=== PATIENT | female | born 1970 | race African-American/Black ===

== ENCOUNTER 2025-02-12 07:48 | Inpatient (IN) | payer MEDICAID ==
[~2025-02-12] VITALS: Ht 162.6 cm; Wt 84.8 kg
[2025-02-12] VITALS (57 sets, daily range): BP systolic 73–182; BP diastolic 36–154; PULSE 110–141; RESP 18–38; TEMP 35.5–37.7; O2SAT 100
[2025-02-12] MEDS: LORAZEPAM 2MG/ML UD SYRINGE ONE (07:57)
[2025-02-12] MEDS: SODIUM CHLORIDE 0.9% (SEPSIS BOLUS) IV ONE (08:06)
[2025-02-12] MEDS: PIPERACILLIN/TAZO 3.375G/50ML 50 ML IV ONE (08:07)
[2025-02-12] MEDS ORDERED: LORAZEPAM 2MG/ML UD SYRINGE IV SCH (08:15)
[2025-02-12] MEDS: PROPOFOL 10MG/ML 100ML 100 ML IV PRN (08:30)
[2025-02-12 08:43] LABS: BASOPHILS % 0.1 % (0.0-2.0); EOSINOPHILS % 0.0 % (0.0-5.0); HEMATOCRIT. 40.3 % (36.0-48.0); HEMOGLOBIN. 11.7 g/dL (12.0-16.0); LYMPHOCYTES % 10.3 % (20.0-50.0); MEAN PLATELET VOLUME 7.8 fl (7.4-10.4); MONOCYTES % 8.1 % (2.0-8.0); NEUTROPHILS % 81.5 % (40.0-76.0); PLATELET 225 x1000/uL (130-400); RED BLOOD CELL COUNT 3.95 mill/uL (4.2-5.4); RED CELL DISTRIBUTION WIDTH 19.2 % (11.6-14.6)
[2025-02-12 09:00] LABS: CREATININE 2.7 mg/dL (0.6-1.0)
[2025-02-12 09:01] LABS: ETHANOL BLOOD < 10 mg/dL (<10); TROPONIN I HIGH SENSITIVITY 10 ng/L (3.0-34); UREA NITROGEN BLOOD 15 mg/dL (9-23)
[2025-02-12 09:02] LABS: ASPARTATE AMINOTRANSFERASE 47 IU/L (<34)
[2025-02-12 09:03] LABS: BILIRUBIN DIRECT 0.6 mg/dL (<=3.0); BILIRUBIN TOTAL 1.3 mg/dL (0.1-1.0); PROTEIN TOTAL 6.4 g/dL (6.0-8.3)
[2025-02-12 10:00] LABS: BG BASE EXCESS -21.3 mmol/L (-2.0-3.0); BG CARBOXYHEMOGLOBIN 0.3 % (0.5-1.5); BG DEOXYHEMOGLOBIN 0.5 % (0.0-5.0); BG FRACTION INSPIRED OXYGEN 70; BG HCO3 ACT 7.4 mmol/L (21.0-28.0); BG METHEMOGLOBIN 0.3 % (0.5-1.5); BG OXYGEN SATURATION 99.5 % (94.0-98.0); BG OXYHEMOGLOBIN 98.9 % (94.0-98.0); BG PCO2 25.9 mmHg (32.0-45.0); BG PEEP (cmH2O) 6.0 cmH2O; BG PH 7.071 (7.350-7.450); BG PO2 219.1 mmHg (83.0-108.0); BG SAMPLE SITE RIGHT BRACHIAL; BG TIDAL VOLUME(mL) 450.0 mL; BG TOTAL HEMOGLOBIN 12.3 g/dL (12.0-16.0); BG VENT MODE VENT - AC; BG VENT RATE 18.0 set
[2025-02-12 10:19] LABS: CLARITY URINE TURBID (CLEAR); COLOR URINE YELLOW (YELLOW); GLUCOSE URINE NEGATIVE (NEGATIVE); KETONES URINE 2+ (NEGATIVE); LEUKOCYTE ESTERASE URINE 2+ (NEGATIVE); NITRITE URINE NEGATIVE (NEGATIVE); OCCULT BLOOD URINE 3+ (NEGATIVE); PH URINE 5.0 (4.5-8.0); PROTEIN URINE 2+ (NEGATIVE); SPECIFIC GRAVITY URINE 1.015 (1.005-1.030); UROBILINOGEN URINE 1.0 E.U./dL (0.2-1.0)
[2025-02-12 10:30] LABS: SQUAMOUS EPITHELIAL CELL URINE 3+ /lpf (RARE/1+); WBC URINE TNTC /hpf (0-2)
[2025-02-12 10:32] LABS: BACTERIA URINE 4+; RBC URINE 15-25 /hpf (0-2)
[2025-02-12 10:39] LABS: *AMPHETAMINES SCREEN URINE NEGATIVE (NEGATIVE); *BENZODIAZEPINES SCREEN URINE NEGATIVE (NEGATIVE)
[2025-02-12 10:40] LABS: *BARBITURATES SCREEN URINE NEGATIVE (NEGATIVE); *COCAINE SCREEN URINE NEGATIVE (NEGATIVE); CANNABINOID URINE SCREEN NEGATIVE (NEGATIVE); ECSTASY MDMA SCREEN URINE NEGATIVE (NEGATIVE); METHADONE URINE SCREEN NEGATIVE (NEGATIVE); OPIATES URINE SCREEN NEGATIVE (NEGATIVE); PHENCYCLIDINE URINE SCREEN NEGATIVE (NEGATIVE)
[2025-02-12] MEDS ORDERED: IPRATROPIUM BROMIDE (0.02%) 0.5MG/2.5ML NEB HHN SCH (11:00)
[2025-02-12] MEDS ORDERED: IPRATROPIUM/ALBUTEROL 0.5-3(2.5)MG/3ML NEB HHN PRN (11:00)
[2025-02-12] MEDS ORDERED: GUAIFENESIN 200MG/10ML SUGAR FREE UDC PO PRN (11:15)
[2025-02-12] MEDS ORDERED: ACETAMINOPHEN 325MG TABLET PO PRN (11:15)
[2025-02-12] MEDS ORDERED: MAGNESIUM/ALUMINUM HYDROXIDE/SIMETHICONE 30ML UDC PO PRN (11:15)
[2025-02-12] MEDS ORDERED: DOCUSATE SODIUM 100MG CAPSULE PO PRN (11:15)
[2025-02-12] MEDS: SODIUM BICARBONATE 8.4% 50MEQ/50ML SYR IV NR (11:25)
[2025-02-12] MEDS: DEXTROSE 5% WATER 1,000 ML IV SCH (11:38)
[2025-02-12] MEDS: IPRATROPIUM/ALBUTEROL 0.5-3(2.5)MG/3ML NEB NEB SCH (12:00)
[2025-02-12] MEDS: HYDRALAZINE 20MG/ML VIAL IV PRN (12:12)
[2025-02-12] MEDS: SODIUM BICARBONATE 150 MEQ in DEXTROSE 5% WATER 850 ML IV SCH (12:34)
[2025-02-12] MEDS: ENOXAPARIN 30MG/0.3ML SYR SUBCUT SCH (13:14)
[2025-02-12 13:26] LABS: PHOSPHORUS 6.3 mg/dL (2.5-4.9)
[2025-02-12] MEDS: ACETAMINOPHEN 325MG TABLET PO PRN (14:31)
[2025-02-12 14:54] LABS: BG BASE EXCESS -9.8 mmol/L (-2.0-3.0); BG CARBOXYHEMOGLOBIN 0.1 % (0.5-1.5); BG DEOXYHEMOGLOBIN 0.9 % (0.0-5.0); BG FRACTION INSPIRED OXYGEN 50; BG HCO3 ACT 14.2 mmol/L (21.0-28.0); BG METHEMOGLOBIN 0.0 % (0.5-1.5); BG OXYGEN SATURATION 99.1 % (94.0-98.0); BG OXYHEMOGLOBIN 99.0 % (94.0-98.0); BG PCO2 25.8 mmHg (32.0-45.0); BG PEEP (cmH2O) 5.0 cmH2O; BG PH 7.360 (7.350-7.450); BG PO2 213.5 mmHg (83.0-108.0); BG SAMPLE SITE RIGHT BRACHIAL; BG TIDAL VOLUME(mL) 450.0 mL; BG TOTAL HEMOGLOBIN 10.7 g/dL (12.0-16.0); BG VENT MODE VENT - AC; BG VENT RATE 24.0 set
[2025-02-12] MEDS: FENTANYL 2500MCG/250ML PMX 250 ML IV PRN (15:00)
[2025-02-12] MEDS ORDERED: DEXTROSE 50% WATER 50ML SYRINGE IV PRN (17:30)
[2025-02-12 17:53] LABS: CREATININE 2.5 mg/dL (0.6-1.0)
[2025-02-12 17:54] LABS: INR 1.0; UREA NITROGEN BLOOD 15.0 mg/dL (9-23)
[2025-02-12 20:54] LABS: CREATININE 2.5 mg/dL (0.6-1.0); UREA NITROGEN BLOOD 16 mg/dL (9-23)
[2025-02-12] MEDS: BLOOD SUGAR DIAGNOSTIC STRIP TEST SCH (21:08)
[2025-02-12] MEDS: INSULIN LISPRO 100 UNITS/ML SUBCUT SCH (21:11)
[2025-02-12] MEDS: PIPERACILLIN/TAZO 3.375G/50ML 50 ML IV SCH (21:11)
[2025-02-13] VITALS (104 sets, daily range): BP systolic 87–157; BP diastolic 41–146; PULSE 108–141; RESP 15–27; TEMP 37.5–38.1; O2SAT 93–100
[2025-02-13 06:05] LABS: BASOPHILS % 0.2 % (0.0-2.0); EOSINOPHILS % 0.2 % (0.0-5.0); HEMATOCRIT. 35.2 % (36.0-48.0); HEMOGLOBIN. 11.4 g/dL (12.0-16.0); LYMPHOCYTES % 31.5 % (20.0-50.0); MEAN PLATELET VOLUME 7.5 fl (7.4-10.4); MONOCYTES % 11.0 % (2.0-8.0); NEUTROPHILS % 57.1 % (40.0-76.0); PLATELET 143 x1000/uL (130-400); RED BLOOD CELL COUNT 3.90 mill/uL (4.2-5.4); RED CELL DISTRIBUTION WIDTH 18.1 % (11.6-14.6)
[2025-02-13 06:47] LABS: T4 FREE 1.27 ng/dL (0.89-1.76)
[2025-02-13 06:50] LABS: LDL CHOLESTEROL 56.0 mg/dL (5-100)
[2025-02-13 06:51] LABS: TRIGLYCERIDE 184.0 mg/dL (0-150)
[2025-02-13] MEDS: PROPOFOL 10MG/ML 100ML 100 ML IV PRN (08:39)
[2025-02-13 10:27] LABS: BG BASE EXCESS 9.5 mmol/L (-2.0-3.0); BG CARBOXYHEMOGLOBIN 0.4 % (0.5-1.5); BG DEOXYHEMOGLOBIN 0.0 % (0.0-5.0); BG FRACTION INSPIRED OXYGEN 50; BG HCO3 ACT 31.9 mmol/L (21.0-28.0); BG METHEMOGLOBIN 0.0 % (0.5-1.5); BG OXYGEN SATURATION 100.0 % (94.0-98.0); BG OXYHEMOGLOBIN 99.6 % (94.0-98.0); BG PCO2 35.5 mmHg (32.0-45.0); BG PEEP (cmH2O) 5.0 cmH2O; BG PH 7.572 (7.350-7.450); BG PO2 258.0 mmHg (83.0-108.0); BG SAMPLE SITE LEFT RADIAL; BG TIDAL VOLUME(mL) 450.0 mL; BG TOTAL HEMOGLOBIN 13.2 g/dL (12.0-16.0); BG TOTAL RESPIRATORY RATE 26 b/min; BG VENT MODE VENT - AC; BG VENT RATE 24.0 set
[2025-02-13 16:23] LABS: BG BASE EXCESS 13.1 mmol/L (-2.0-3.0); BG CARBOXYHEMOGLOBIN 0.3 % (0.5-1.5); BG DEOXYHEMOGLOBIN 2.1 % (0.0-5.0); BG FRACTION INSPIRED OXYGEN 40; BG HCO3 ACT 37.2 mmol/L (21.0-28.0); BG METHEMOGLOBIN 0.0 % (0.5-1.5); BG OXYGEN SATURATION 97.9 % (94.0-98.0); BG OXYHEMOGLOBIN 97.6 % (94.0-98.0); BG PCO2 45.0 mmHg (32.0-45.0); BG PEEP (cmH2O) 5.0 cmH2O; BG PH 7.535 (7.350-7.450); BG PO2 97.1 mmHg (83.0-108.0); BG SAMPLE SITE RIGHT RADIAL; BG TIDAL VOLUME(mL) 400.0 mL; BG TOTAL HEMOGLOBIN 12.3 g/dL (12.0-16.0); BG VENT MODE VENT - AC; BG VENT RATE 20.0 set
[2025-02-13] MEDS: VANCOMYCIN 1.5GM/250ML 250 ML IV SCH (16:41)
[2025-02-13 18:26] LABS: UREA NITROGEN BLOOD 14.0 mg/dL (9-23)
[2025-02-13 18:28] LABS: CREATININE 1.4 mg/dL (0.6-1.0)
[2025-02-13] MEDS: DILTIAZEM HCL 60MG TABLET PO SCH (23:06)
[2025-02-14] VITALS (84 sets, daily range): BP systolic 85–157; BP diastolic 44–119; PULSE 104–134; RESP 17–26; TEMP 37.1–38.4; O2SAT 97–100
[2025-02-14 05:44] LABS: BASOPHILS % 0.5 % (0.0-2.0); EOSINOPHILS % 0.5 % (0.0-5.0); HEMATOCRIT. 34.2 % (36.0-48.0); HEMOGLOBIN. 11.3 g/dL (12.0-16.0); LYMPHOCYTES % 20.9 % (20.0-50.0); MEAN PLATELET VOLUME 7.8 fl (7.4-10.4); MONOCYTES % 5.8 % (2.0-8.0); NEUTROPHILS % 72.3 % (40.0-76.0); PLATELET 147 x1000/uL (130-400); RED BLOOD CELL COUNT 3.89 mill/uL (4.2-5.4); RED CELL DISTRIBUTION WIDTH 17.8 % (11.6-14.6)
[2025-02-14 06:02] LABS: CREATININE 1.1 mg/dL (0.6-1.0)
[2025-02-14 06:03] LABS: PROTEIN TOTAL 5.7 g/dL (6.0-8.3); TRIGLYCERIDE 82 mg/dL (0-150); UREA NITROGEN BLOOD 13 mg/dL (9-23)
[2025-02-14 06:04] LABS: ASPARTATE AMINOTRANSFERASE 95 IU/L (<34); BILIRUBIN DIRECT 0.7 mg/dL (<=3.0)
[2025-02-14 06:05] LABS: BILIRUBIN TOTAL 1.6 mg/dL (0.1-1.0); PHOSPHORUS 2.0 mg/dL (2.5-4.9)
[2025-02-14] MEDS: FAMOTIDINE 20MG/2ML VIAL IV SCH (08:38)
[2025-02-14] MEDS: POTASSIUM CHLORIDE 20MEQ/PACKET PO SCH ×2 (09:12→11:20)
[2025-02-14] MEDS ORDERED: POTASSIUM PHOSPHATE 15 MMOL in DEXT 5% WATER 245 ML IV ONE (09:15)
[2025-02-14 09:17] LABS: BG BASE EXCESS 12.2 mmol/L (-2.0-3.0); BG CARBOXYHEMOGLOBIN 0.8 % (0.5-1.5); BG DEOXYHEMOGLOBIN 0.2 % (0.0-5.0); BG FRACTION INSPIRED OXYGEN 40; BG HCO3 ACT 36.7 mmol/L (21.0-28.0); BG METHEMOGLOBIN 0.1 % (0.5-1.5); BG OXYGEN SATURATION 99.8 % (94.0-98.0); BG OXYHEMOGLOBIN 98.9 % (94.0-98.0); BG PCO2 45.8 mmHg (32.0-45.0); BG PEEP (cmH2O) 5.0 cmH2O; BG PH 7.522 (7.350-7.450); BG PO2 187.2 mmHg (83.0-108.0); BG SAMPLE SITE RIGHT RADIAL; BG TIDAL VOLUME(mL) 400.0 mL; BG TOTAL HEMOGLOBIN 15.9 g/dL (12.0-16.0); BG TOTAL RESPIRATORY RATE 22 b/min; BG VENT MODE VENT - AC; BG VENT RATE 20.0 set
[2025-02-14] MEDS: MAGNESIUM 4 G PREMIX 100 ML IV SCH (10:27)
[2025-02-14] MEDS: POTASSIUM PHOSPHATE 20 MMOL in DEXT 5% WATER 243.3333 ML IV SCH (10:27)
[2025-02-14] MEDS: ENOXAPARIN 40MG/0.4ML SYR SUBCUT SCH (13:11)
[2025-02-14] MEDS ORDERED: T3 PO (14:48)
[2025-02-14] MEDS ORDERED: POTA10CA93 PO (14:55)
[2025-02-14] MEDS ORDERED: TC1C15 TP (14:55)
[2025-02-14] MEDS ORDERED: FURO-152 PO (14:55)
[2025-02-14] MEDS ORDERED: METH-773 PO (14:55)
[2025-02-14] MEDS ORDERED: IPRA3AMP31 IH (14:55)
[2025-02-14] MEDS ORDERED: OMEP10CA5 PO (14:55)
[2025-02-14] MEDS ORDERED: AMIT10TA7 GT (14:55)
[2025-02-14] MEDS ORDERED: HYDR25TA PO (14:55)
[2025-02-14] MEDS: SODIUM CHLORIDE 0.45% 1,000 ML IV SCH (15:01)
[2025-02-14] MEDS: VANCOMYCIN 1.25GM/250ML 250 ML IV SCH (17:30)
[2025-02-14] MEDS: ACETAMINOPHEN 1000MG/100ML 100 ML IV SCH (17:30)
[2025-02-14] MEDS ORDERED: LORAZEPAM 2MG/ML UD SYRINGE IV PRN (18:15)
[2025-02-14] MEDS: CEFEPIME 2GM PREMIX 100ML IV SCH (21:10)
[2025-02-14] MEDS ORDERED: CEFEPIME 2GM IN DEXT 5% 100ML IV SCH (22:00)
[2025-02-15] VITALS (74 sets, daily range): BP systolic 65–149; BP diastolic 34–127; PULSE 87–133; RESP 17–28; TEMP 37.1–38.2; O2SAT 99–100
[2025-02-15 06:17] LABS: BASOPHILS % 0.4 % (0.0-2.0); EOSINOPHILS % 1.1 % (0.0-5.0); HEMATOCRIT. 29.7 % (36.0-48.0); HEMOGLOBIN. 9.9 g/dL (12.0-16.0); LYMPHOCYTES % 19.1 % (20.0-50.0); MEAN PLATELET VOLUME 7.8 fl (7.4-10.4); MONOCYTES % 8.4 % (2.0-8.0); NEUTROPHILS % 71.0 % (40.0-76.0); PLATELET 133 x1000/uL (130-400); RED BLOOD CELL COUNT 3.38 mill/uL (4.2-5.4); RED CELL DISTRIBUTION WIDTH 17.4 % (11.6-14.6)
[2025-02-15 06:46] LABS: CREATININE 0.9 mg/dL (0.6-1.0); UREA NITROGEN BLOOD 10 mg/dL (9-23)
[2025-02-15 06:47] LABS: ERYTHROCYTE SEDIMENTATION RATE 36 mm/hr (0-30)
[2025-02-15 06:48] LABS: ASPARTATE AMINOTRANSFERASE 43 IU/L (<34); BILIRUBIN DIRECT 0.7 mg/dL (<=3.0); PHOSPHORUS 2.3 mg/dL (2.5-4.9)
[2025-02-15 06:49] LABS: BILIRUBIN TOTAL 1.3 mg/dL (0.1-1.0); PROTEIN TOTAL 5.4 g/dL (6.0-8.3)
[2025-02-15 08:32] LABS: BG BASE EXCESS 4.8 mmol/L (-2.0-3.0); BG CARBOXYHEMOGLOBIN 0.4 % (0.5-1.5); BG DEOXYHEMOGLOBIN 0.4 % (0.0-5.0); BG FRACTION INSPIRED OXYGEN 40; BG HCO3 ACT 27.4 mmol/L (21.0-28.0); BG METHEMOGLOBIN 0.3 % (0.5-1.5); BG OXYGEN SATURATION 99.6 % (94.0-98.0); BG OXYHEMOGLOBIN 98.9 % (94.0-98.0); BG PCO2 33.2 mmHg (32.0-45.0); BG PEEP (cmH2O) 5.0 cmH2O; BG PH 7.534 (7.350-7.450); BG PO2 224.4 mmHg (83.0-108.0); BG TIDAL VOLUME(mL) 400.0 mL; BG TOTAL HEMOGLOBIN 10.2 g/dL (12.0-16.0); BG VENT MODE AC; BG VENT RATE 12.0 set
[2025-02-15] MEDS ORDERED: NOREPINEPHRINE 8 MG in DEXT 5% WATER 242 ML IV PRN (08:45)
[2025-02-15] MEDS: POTASSIUM CHLORIDE 20MEQ/PACKET PO SCH (08:49)
[2025-02-15] MEDS: NOREPINEPHRINE 8MG/250ML PMX 250ML IV PRN (08:49)
[2025-02-15] MEDS: POTASSIUM PHOSPHATE 30 MMOL in DEXT 5% WATER 490 ML IV SCH (10:43)
[2025-02-15] MEDS ORDERED: LIDOCAINE HCL 1% 10 MG/ML 10ML VIAL ONE (12:42)
[2025-02-15] MEDS: VANCOMYCIN 750MG PREMIX 150 ML IV SCH (14:29)
[2025-02-15] MEDS ORDERED: CLONIDINE 0.1MG TABLET PO PRN (17:00)
[2025-02-15] MEDS: CEFEPIME 2GM/100ML 100 ML IV SCH (17:47)
[2025-02-16] VITALS (83 sets, daily range): BP systolic 78–218; BP diastolic 47–196; PULSE 93–129; RESP 10–26; TEMP 37.7–38.2; O2SAT 97–100
[2025-02-16] MEDS: OXYCODONE HCL/ACETAMINOPHEN 5/325MG TABLET PO NR (02:08)
[2025-02-16 05:38] LABS: BASOPHILS % 0.2 % (0.0-2.0); EOSINOPHILS % 1.1 % (0.0-5.0); HEMATOCRIT. 26.7 % (36.0-48.0); HEMOGLOBIN. 8.9 g/dL (12.0-16.0); LYMPHOCYTES % 14.5 % (20.0-50.0); MEAN PLATELET VOLUME 7.8 fl (7.4-10.4); MONOCYTES % 9.8 % (2.0-8.0); NEUTROPHILS % 74.4 % (40.0-76.0); PLATELET 120 x1000/uL (130-400); RED BLOOD CELL COUNT 3.00 mill/uL (4.2-5.4); RED CELL DISTRIBUTION WIDTH 17.9 % (11.6-14.6)
[2025-02-16 08:50] LABS: CREATININE 0.6 mg/dL (0.6-1.0)
[2025-02-16 08:51] LABS: UREA NITROGEN BLOOD 8 mg/dL (9-23)
[2025-02-16 08:52] LABS: ASPARTATE AMINOTRANSFERASE 27 IU/L (<34)
[2025-02-16 08:53] LABS: BILIRUBIN DIRECT 0.4 mg/dL (<=3.0); BILIRUBIN TOTAL 0.8 mg/dL (0.1-1.0); PHOSPHORUS 2.2 mg/dL (2.5-4.9); PROTEIN TOTAL 5.1 g/dL (6.0-8.3)
[2025-02-16] MEDS ORDERED: LEVETIRACETAM 1,000MG in NACL 100ML PREMIX IV SCH (09:00)
[2025-02-16] MEDS: SODIUM CHLORIDE 0.9% 1,000 ML IV SCH (09:20)
[2025-02-16] MEDS: LEVETIRACETAM 1000MG PREMIX 100 ML IV SCH (09:20)
[2025-02-16] MEDS: ENOXAPARIN 80MG/0.8ML SYR SUBCUT SCH (12:55)
[2025-02-16] MEDS ORDERED: GADOTERATE MEGLUMINE 5 MMOL/10 ML VIAL IV ONE (15:10)
[2025-02-16] MEDS: ACETAMINOPHEN 650MG/20.3ML UDC PO PRN (18:14)
[2025-02-17] VITALS (49 sets, daily range): BP systolic 76–149; BP diastolic 48–106; PULSE 100–124; RESP 14–24; TEMP 37.6–38.3; O2SAT 99–100
[2025-02-17 06:07] LABS: CREATININE 0.5 mg/dL (0.6-1.0); UREA NITROGEN BLOOD 7 mg/dL (9-23)
[2025-02-17 08:03] LABS: BG BASE EXCESS 2.5 mmol/L (-2.0-3.0); BG CARBOXYHEMOGLOBIN 0.6 % (0.5-1.5); BG DEOXYHEMOGLOBIN 0.8 % (0.0-5.0); BG FRACTION INSPIRED OXYGEN 30; BG HCO3 ACT 25.3 mmol/L (21.0-28.0); BG METHEMOGLOBIN 0.1 % (0.5-1.5); BG OXYGEN SATURATION 99.2 % (94.0-98.0); BG OXYHEMOGLOBIN 98.5 % (94.0-98.0); BG PCO2 32.7 mmHg (32.0-45.0); BG PEEP (cmH2O) 5.0 cmH2O; BG PH 7.507 (7.350-7.450); BG PO2 141.4 mmHg (83.0-108.0); BG TIDAL VOLUME(mL) 400.0 mL; BG TOTAL HEMOGLOBIN 9.9 g/dL (12.0-16.0); BG VENT MODE VENT - AC; BG VENT RATE 12.0 set
[2025-02-17 13:21] LABS: BG BASE EXCESS 1.7 mmol/L (-2.0-3.0); BG CARBOXYHEMOGLOBIN 0.4 % (0.5-1.5); BG DEOXYHEMOGLOBIN 0.8 % (0.0-5.0); BG FRACTION INSPIRED OXYGEN 30; BG HCO3 ACT 24.3 mmol/L (21.0-28.0); BG METHEMOGLOBIN 0.1 % (0.5-1.5); BG OXYGEN SATURATION 99.2 % (94.0-98.0); BG OXYHEMOGLOBIN 98.7 % (94.0-98.0); BG PCO2 31.7 mmHg (32.0-45.0); BG PEEP (cmH2O) 5.0 cmH2O; BG PH 7.503 (7.350-7.450); BG PO2 142.3 mmHg (83.0-108.0); BG SAMPLE SITE LEFT RADIAL; BG TOTAL HEMOGLOBIN 11.4 g/dL (12.0-16.0); BG VENT MODE VENT - CPAP
[2025-02-17] MEDS: AMPICILLIN 2,000 MG in SODIUM CHLORIDE 0.9% 100 ML IV SCH (18:13)
[2025-02-17] MEDS: CEFTRIAXONE 2GM/50ML 50 ML IV SCH (18:13)
[2025-02-17] MEDS ORDERED: WATER IV SCH (18:30)
[2025-02-17] MEDS ORDERED: ACYCLOVIR IV SCH (18:30)
[2025-02-17] MEDS ORDERED: DEXT 5% IV SCH (18:30)
[2025-02-17] MEDS: DEXT 5% IV SCH (20:10)
[2025-02-17] MEDS: ACYCLOVIR IV SCH (20:10)
[2025-02-17] MEDS: WATER IV SCH (20:10)
[2025-02-17] MEDS ORDERED: LORAZEPAM 2MG/ML UD SYRINGE IV PRN (22:15)
[2025-02-18] VITALS: BP 103/47; PULSE 118; RESP 21; O2SAT 100
== END 2025-02-18 00:15 | disposition short-term general hospital (02) | DRG 720 ==
LOC: ER 08:04 → EDBEDREQ 08:17 → MICUNO 09:49 → EDBEDREQ 09:52 → ENRESERV 09:56
PROVIDERS: ADMIT Hospitalist; ATTEND Hospitalist
PROC: 5A1955Z Respiratory Ventilation, Greater than 96 Consecutive Hours (ICD-10-PCS; principal; 2025-02-12)
PROC: 0BH17EZ Insertion of Endotracheal Airway into Trachea, Via Natural or Artificial Opening (ICD-10-PCS; 2025-02-12)
PROC: 4A00X4Z Measurement of Central Nervous Electrical Activity, External Approach (ICD-10-PCS; 2025-02-13)
PROC: 05HY33Z Insertion of Infusion Device into Upper Vein, Percutaneous Approach (ICD-10-PCS; 2025-02-15)
PROC: B54MZZA Ultrasonography of Right Upper Extremity Veins, Guidance (ICD-10-PCS; 2025-02-15)
PROC: 4A00X4Z Measurement of Central Nervous Electrical Activity, External Approach (ICD-10-PCS; 2025-02-17)
DX: A41.89 Other specified sepsis (principal); J96.01 Acute respiratory failure with hypoxia; N17.0 Acute kidney failure with tubular necrosis; R65.21 Severe sepsis with septic shock; G93.41 Metabolic encephalopathy; E83.51 Hypocalcemia; M62.82 Rhabdomyolysis; E87.0 Hyperosmolality and hypernatremia; E87.4 Mixed disorder of acid-base balance; R74.8 Abnormal levels of other serum enzymes; N39.0 Urinary tract infection, site not specified; E03.9 Hypothyroidism, unspecified; D53.9 Nutritional anemia, unspecified; E87.6 Hypokalemia; Z20.822 Contact with and (suspected) exposure to COVID-19; E83.42 Hypomagnesemia; E86.0 Dehydration; K21.9 Gastro-esophageal reflux disease without esophagitis; J34.1 Cyst and mucocele of nose and nasal sinus; D50.9 Iron deficiency anemia, unspecified; E87.8 Other disorders of electrolyte and fluid balance, not elsewhere classified; I10 Essential (primary) hypertension; G40.909 Epilepsy, unspecified, not intractable, without status epilepticus; E80.6 Other disorders of bilirubin metabolism; M88.88 Osteitis deformans of other bones; E66.9 Obesity, unspecified; G47.33 Obstructive sleep apnea (adult) (pediatric); Z98.84 Bariatric surgery status; Z90.49 Acquired absence of other specified parts of digestive tract; Z79.899 Other long term (current) drug therapy; Z86.0101 Personal history of adenomatous and serrated colon polyps; Z68.32 Body mass index [BMI] 32.0-32.9, adult
CPT/HCPCS: 31500; 31720; 36415; 36573; 36600; 70551; 70552; 71045; 76700; 76770; 80048; 80061; 80076; 80202; 80305; 80307; 80320; 80329; 81003; 82140; 82375; 82550; 82805; 82962; 83036; 83605; 83735; 83880; 84100; 84132; 84145; 84439; 84443; 84478; 84484; 85025; 85044; 85651; 86141; 87070; 87077; 87186; 87426; 87899; 93005; 93306; 93970; 94002; 94003; 94070; 94640; 94664; 94760; 95816; 96365; 96375; 98960; 99291; A4606; A9577; C1725; J0133; J0290; J0360; J0692; J0696; J1308; J1650; J1815; J1953; J2003; J2060; J2543; J2704; J3373; J3475; J3490; J7030; J7050; J7060; J7070; G0480; J0131